=== PATIENT | male | born 1990 | race Caucasian/White ===

== ENCOUNTER 2018-04-19 09:50 | Observation (INO) | payer OTHER ==
[2018-04-19] MEDS: DOCUSATE SODIUM 100 MG CAP PO ×2 (09:00→22:00)
[2018-04-19] MEDS: SENOKOT S TAB PO ×2 (09:00→22:00)
[2018-04-19] MEDS: HYDROmorphone HCL 1 MG/ML SYRINGE (J1170) IV ×3 (10:24→12:58)
[2018-04-19] MEDS: METHOCARBAMOL 1,000 MG/10 ML VIAL (J2800) IV (10:34)
[2018-04-19] MEDS: methylPREDNISolone INJ 125 MG/2 ML VIAL (J2930) IV (12:57)
[2018-04-19] MEDS ORDERED: KETOROLAC 30 MG/ML VIAL (J1885) IV (13:15)
[2018-04-19] MEDS ORDERED: MORPHINE 4 MG/ML 1ML VIAL/SYRINGE (J2270) IV (13:15)
[2018-04-19] MEDS ORDERED: ONDANSETRON 4MG/2ML VIAL (J2405) IV (13:15)
[2018-04-19 14:12] LABS: ANION GAP 6 MEQ/L (8-16); BLOOD UREA NITROGEN 16 MG/DL (7-18); CARBON DIOXIDE LEVEL 30 MEQ/L (21-32); CHLORIDE LEVEL 104 MEQ/L (98-107); CREATININE FOR GFR 1.01 MG/DL (0.70-1.30); GLOMERULAR FILTRATION RATE > 60.0 (>60); GLUCOSE, FASTING 93 MG/DL (70-100); POTASSIUM SERUM 3.9 MEQ/L (3.5-5.1); SODIUM LEVEL 140 MEQ/L (136-145)
[2018-04-19] MEDS: diazePAM 5 MG TAB PO (14:31)
[2018-04-19] MEDS: KETOROLAC 30 MG/ML VIAL (J1885) IV ×2 (14:31→22:01)
[2018-04-19] MEDS: PERCOCET 5MG/325MG TAB PO (18:25)
[2018-04-19] MEDS: PANTOPRAZOLE 40MG TAB (PROTONIX) PO (18:28)
[2018-04-19] MEDS: AMITRIPTYLINE 25 MG TAB PO (22:00)
[2018-04-19] MEDS: ENOXAPARIN 40 MG/0.4 ML SYRINGE (J1650) SC (22:00)
[2018-04-20] MEDS: KETOROLAC 30 MG/ML VIAL (J1885) IV ×4 (02:24→20:23)
[2018-04-20] MEDS ORDERED: MORPHINE 4 MG/ML 1ML VIAL/SYRINGE (J2270) IV (06:00)
[2018-04-20 07:48] LABS: BASO % 0.1 % (0.0-1.0); HEMATOCRIT 47.2 % (42.0-52.0); HEMOGLOBIN 16.4 g/dl (13.5-17.5); IMMATURE GRANULOCYTE % 0.7 % (0-3.0); LYMPH # 0.9 10^3/uL (1.5-6.5); LYMPH % 6.9 % (24.0-44.0); MEAN CORPUSCULAR HEMOGLOBIN 30.5 pg (27.0-33.0); MEAN CORPUSCULAR HGB CONC 34.7 g/dl (32.0-36.5); MEAN CORPUSCULAR VOLUME 87.9 fl (80.0-96.0); MONO % 7.5 % (0.0-5.0); NEUTROPHILS # 11.6 10^3/uL (1.8-7.7); NEUTROPHILS % 84.8 % (36.0-66.0); PLATELET COUNT, AUTOMATED 261 10^3/uL (150-450); RED BLOOD COUNT 5.37 10^6/uL (4.30-6.10); RED CELL DISTRIBUTION WIDTH 11.9 % (11.5-14.5); WHITE BLOOD COUNT 13.7 10^3/uL (4.0-10.0)
[2018-04-20 08:11] LABS: ANION GAP 8 MEQ/L (8-16); BLOOD UREA NITROGEN 20 MG/DL (7-18); CALCIUM LEVEL 8.6 MG/DL (8.5-10.1); CARBON DIOXIDE LEVEL 26 MEQ/L (21-32); CHLORIDE LEVEL 106 MEQ/L (98-107); CREATININE FOR GFR 1.04 MG/DL (0.70-1.30); GLOMERULAR FILTRATION RATE > 60.0 (>60); GLUCOSE, FASTING 142 MG/DL (70-100); POTASSIUM SERUM 4.3 MEQ/L (3.5-5.1); SODIUM LEVEL 140 MEQ/L (136-145)
[2018-04-20] MEDS: DOCUSATE SODIUM 100 MG CAP PO ×2 (08:43→20:22)
[2018-04-20] MEDS: PERCOCET 5MG/325MG TAB PO ×2 (08:43→13:17)
[2018-04-20] MEDS: SENOKOT S TAB PO ×2 (08:43→20:22)
[2018-04-20] MEDS: PANTOPRAZOLE 40MG TAB (PROTONIX) PO (08:44)
[2018-04-20] MEDS: GABAPENTIN 300 MG CAP PO ×2 (13:15→20:22)
[2018-04-20] MEDS: tiZANidine 4 MG TAB PO ×3 (13:16→20:21)
[2018-04-20] MEDS: ENOXAPARIN 40 MG/0.4 ML SYRINGE (J1650) SC (20:22)
[2018-04-21] MEDS: KETOROLAC 30 MG/ML VIAL (J1885) IV ×2 (02:51→08:16)
[2018-04-21] MEDS: PANTOPRAZOLE 40MG TAB (PROTONIX) PO (08:16)
[2018-04-21] MEDS: GABAPENTIN 300 MG CAP PO (08:16)
[2018-04-21] MEDS: tiZANidine 4 MG TAB PO (08:16)
[2018-04-21] MEDS: SENOKOT S TAB PO (08:16)
[2018-04-21] MEDS: DOCUSATE SODIUM 100 MG CAP PO (08:16)
[2018-04-21] MEDS: PERCOCET 5MG/325MG TAB PO ×2 (08:18→13:55)
== END 2018-04-21 14:04 | disposition home or self-care (01) ==
LOC: M ED 09:50 → M MS4PR 04-20 15:20 → M ED INP 13:15 → M MS5PR 16:43
DX: M47.26 Other spondylosis with radiculopathy, lumbar region (principal); M51.36 Other intervertebral disc degeneration, lumbar region; M54.42 Lumbago with sciatica, left side; E66.01 Morbid (severe) obesity due to excess calories; M19.90 Unspecified osteoarthritis, unspecified site; Z77.098 Contact with and (suspected) exposure to other hazardous, chiefly nonmedicinal, chemicals; J30.2 Other seasonal allergic rhinitis
CPT/HCPCS: J1170